=== PATIENT | female | born 1965 | race Caucasian/White ===

== ENCOUNTER → 2016-05-24 | Outpatient (CLI) | payer OTHER ==
[~2016-05-24] MED LIST: ALPR1TAB3 PO; AMIT25TA9 PO; AMIT50 PO; AMLO5TAB2 PO; ASCO500W; B-COCAP9 PO; CHOL1CAP6 PO; COEN100T PO; FLAX10006; IBUP200T2 PO; IBUP800T23 PO; LOVA20TA PO; LOVA40TA PO; MELAPOW2; OMEG12003; OXYC1TAB36 PO; PERC10TA27 PO; PRED2.5T PO; PRED5SOL PO; RANI150T PO; SUPECAP2 PO; SUPETAB25; TIZA4 PO; TIZA4TAB PO; VITA-83 PO; VITA1CAP20; VITA500T PO; [UNRECOGNIZED DRUG - OTHER]
[2016-05-24 09:41] LABS: AUTOMATED NEUTROPHIL # 3.2 TH/MM3 (1.8-7.7); BASOPHIL % 0.9 % (0.0-2.0); EOSINOPHIL # 0.1 TH/MM3 (0-0.4); EOSINOPHIL % 1.9 % (0.0-4.0); HEMATOCRIT 41.2 % (35.0-46.0); HEMO FLAGS DIFF FINAL; LYMPH % 26.9 % (9.0-44.0); LYMPHOCYTE # 1.5 TH/MM3 (1.0-4.8); MEAN CELL VOLUME 98.2 FL (80.0-100.0); MEAN CORPUSCULAR HEMOGLOBIN 33.5 PG (27.0-34.0); MEAN CORPUSCULAR HGB CONC 34.2 % (32.0-36.0); MONO % 11.4 % (0.0-8.0); NEUT % 58.9 % (16.0-70.0); PLATELET COUNT 385 TH/MM3 (150-450); RED CELL DISTRIBUTION WIDTH 12.9 % (11.6-17.2); WHITE BLOOD COUNT 5.4 TH/MM3 (4.0-11.0)
[2016-05-24 10:13] LABS: ALKALINE PHOSPHATASE 144 U/L (45-117); ALT (GPT) 30 U/L (10-53); ANION GAP 9 MEQ/L (5-15); AST (GOT) 31 U/L (15-37); BLOOD UREA NITROGEN 12 MG/DL (7-18); CHLORIDE 102 MEQ/L (98-107); GLOMERULAR FILTRATION RATE 72 ML/MIN (>89); GLUCOSE,FASTING 105 MG/DL (74-99); HDL CHOLESTEROL 125.7 MG/DL (40.0-60.0); LDL CHOLESTEROL 192 MG/DL (0-99); POTASSIUM 4.2 MEQ/L (3.5-5.1); SODIUM (NA) 141 MEQ/L (136-145); TOTAL BILIRUBIN ADULT 0.8 MG/DL (0.2-1.0)
== END ==
LOC: CLAB 08:54
PROVIDERS: ATTEND Family Medicine
DX: F41.9 Anxiety disorder, unspecified (principal); M54.9 Dorsalgia, unspecified; M32.9 Systemic lupus erythematosus, unspecified; E78.5 Hyperlipidemia, unspecified; Z72.0 Tobacco use
CPT/HCPCS: 36415; 80053; 80061; 84443; 85025

== ENCOUNTER 2016-07-03 20:46 | Emergency (ER) | payer OTHER ==
[~2016-07-03] VITALS: Ht 167.6 cm; Wt 72.0 kg
[~2016-07-03 20:46] MED LIST changes: -AMIT50 PO; -ASCO500W; -B-COCAP9 PO; -CHOL1CAP6 PO; -COEN100T PO; -FLAX10006; -IBUP800T23 PO; -LOVA40TA PO; -MELAPOW2; -OMEG12003; -PERC10TA27 PO; -PRED5SOL PO; -TIZA4 PO; -VITA-83 PO; -VITA1CAP20
[2016-07-03 20:49] VITALS: BP 176/92; PULSE 97; RESP 20; TEMP 97.8; O2SAT 96
[2016-08-21] MEDS ORDERED: AMLO5TAB2 PO (13:52)
[2016-09-01] MEDS ORDERED: PRED2.5T PO ×2 (07:46→13:42)
[2016-10-03] MEDS ORDERED: ASCO500W (10:50)
[2016-10-03] MEDS ORDERED: MELAPOW2 (10:50)
[2016-10-03] MEDS ORDERED: VITA1CAP20 (10:50)
== END 2016-07-03 23:27 | disposition left against medical advice (07) ==
LOC: NED 20:46
DX: R68.89 Other general symptoms and signs (principal)
CPT/HCPCS: 99281

== ENCOUNTER → 2016-09-28 | Outpatient (CLI) | payer OTHER ==
[~2016-09-28] MED LIST changes: +ASCO500W; +MELAPOW2; +VITA1CAP20
[2016-09-28 10:57] LABS: ALKALINE PHOSPHATASE 121 U/L (45-117); ALT (GPT) 26 U/L (10-53); ANION GAP 4 MEQ/L (5-15); AST (GOT) 25 U/L (15-37); BICARBONATE 33.2 MEQ/L (21.0-32.0); BLOOD UREA NITROGEN 17 MG/DL (7-18); CHLORIDE 105 MEQ/L (98-107); GLOMERULAR FILTRATION RATE 105 ML/MIN (>89); GLUCOSE,FASTING 76 MG/DL (74-99); HDL CHOLESTEROL 100.2 MG/DL (40.0-60.0); LDL CHOLESTEROL 128 MG/DL (0-99); SODIUM (NA) 142 MEQ/L (136-145); TOTAL BILIRUBIN ADULT 0.2 MG/DL (0.2-1.0)
== END ==
LOC: CLAB 09:59
PROVIDERS: ATTEND Family Medicine
DX: E78.5 Hyperlipidemia, unspecified (principal)
CPT/HCPCS: 36415; 80053; 80061

== ENCOUNTER 2017-09-23 15:03 | Emergency (ER) | payer SELFPAY ==
[~2017-09-23] VITALS: Ht 172.7 cm; Wt 75.0 kg
[~2017-09-23 15:03] MED LIST changes: -IBUP200T2 PO; +IBUP200T47 PO; -SUPECAP2 PO; -SUPETAB25; -VITA500T PO
[2017-09-23 15:17] VITALS: BP 134/58; PULSE 99; RESP 16; TEMP 98.3; O2SAT 100
[2017-09-23 15:33] VITALS: BP 109/63; PULSE 103; RESP 18; O2SAT 100
[2017-09-23] MEDS ORDERED: CLINDAMYCIN 600 MG/NS PREMIX 50 ML IV ONE (16:00)
[2017-09-23] MEDS ORDERED: SODIUM CHLOR 0.9% 1000 ML INJ 1,000 ML IV ONE (16:00)
[2017-09-23 16:18] LABS: AUTOMATED NEUTROPHIL # 3.6 TH/MM3 (1.8-7.7); BASOPHIL % 0.4 % (0.0-2.0); EOSINOPHIL # 0.2 TH/MM3 (0-0.4); EOSINOPHIL % 2.8 % (0.0-4.0); HEMOGLOBIN 9.8 GM/DL (11.6-15.3); LYMPH % 28.3 % (9.0-44.0); LYMPHOCYTE # 1.7 TH/MM3 (1.0-4.8); MEAN CELL VOLUME 97.2 FL (80.0-100.0); MEAN CORPUSCULAR HEMOGLOBIN 35.4 PG (27.0-34.0); MEAN PLATELET VOLUME 6.8 FL (7.0-11.0); MONO % 8.1 % (0.0-8.0); MONOCYTE # 0.5 TH/MM3 (0-0.9); NEUT % 60.4 % (16.0-70.0); PLATELET COUNT 407 TH/MM3 (150-450); RED BLOOD COUNT 2.77 MIL/MM3 (4.00-5.30); RED CELL DISTRIBUTION WIDTH 11.8 % (11.6-17.2)
--- NOTE | 2017-09-23 16:18 | PD ---
HPI Chief Complaint: Skin Problem Time Seen by Provider: 15:23 Travel History International Travel<30 days: No Contact w/Intl Traveler<30days: No Traveled to known affect area: No History of Present Illness HPI The patient is a 52-year-old female who presents to the emergency department for chronic leg wound in the left lower extremity. The patient states she has a history of an ulceration of the lateral left mid tibia/fibula for the last several months, since December 2016. The patient states she occasionally has some surrounding erythema will be placed on Bactrim, the erythema will improve. However, the patient was recently placed on Bactrim and her symptoms did not improve. She does note the ulceration is circular without any significant drainage. The patient states she was advised to follow-up with a food specialist, however, is currently undergoing a legal fight for disability and has been unable to see a food specialist. She also states her primary physician diagnosed her with lupus after she was tested positive with an TY. However, she has not followed up with a farm machinery erector. She is not currently on any immunosuppressive drugs. She also notes a remote history of a positive screening test for possible blood in her stool was advised to follow-up with a wall man. The patient has not followed up with a wall man. Her main concern is the left leg wound, she denies any spreading of the erythema proximally and denies any associated fever, chills, or sweats. PFSH Past Medical History Autoimmune Disease: Yes (LUPUS) Anxiety: Yes Depression: Yes Cardiovascular Problems: Yes (HTN) Diminished Hearing: No Past Surgical History Genitourinary Surgery: Yes (LEEP) Social History Alcohol Use: Yes (A FEW BEERS A WEEK) Tobacco Use: Yes (e-cigs) Substance Use: Yes Allergies-Medications (Allergen,Severity, Reaction): Coded Allergies: Sulfa (Sulfonamide Antibiotics) (Unverified Allergy, Mild, very sick, 11/28) aspirin (Unverified Adverse Reaction, Mild, 11/28/16) upset stomache. codeine (Unverified Adverse Reaction, Mild, 11/28/16) upset stomache Reported Meds & Prescriptions Reported Meds & Active Scripts Active Amlodipine (Amlodipine Besylate) 5 Mg Tab 5 Mg PO DAILY Lovastatin 20 Mg Tab 20 Mg PO BID Prednisone 2.5 Mg Tab 2.5 Mg PO DAILY Reported Vitamin C 500 mg Wafer (Ascorbic Acid/Ascorbate Sodium) 500 Mg Wafer Melatonin (Melatonin (Bulk)) 1 Pow Pow Super B-50 Complex (Vitamin B Complex) 1 Each Capsule Amitriptyline (Amitriptyline HCl) 25 Mg Tab 25 Mg PO TID Oxycodone-Acetaminophen 10-325 mg Tab 1 Tab PO Q6HR Alprazolam 1 Mg Tab 1 Mg PO Q6H PRN Ranitidine (Ranitidine HCl) 150 Mg Tab 150 Mg PO BID Ibuprofen 200 Mg Tab 200 Mg PO Q4H PRN Tizanidine (Tizanidine HCl) 4 Mg Tab 4 Mg PO TID [energy drink mix] Review of Systems Except as stated in HPI: all other systems reviewed are Neg General / Constitutional: No: Fever, Chills Cardiovascular: No: Chest Pain or Discomfort Respiratory: No: Shortness of Breath Gastrointestinal: No: Nausea, Vomiting, Abdominal Pain Musculoskeletal: Positive: Pain Skin: Positive Other (As noted in the history of present illness) Physical Exam Narrative GENERAL: Awake, alert, nontoxic-appearing 52-year-old female who appears her stated age and is in no acute respiratory distress. SKIN: Focused skin assessment warm/dry. HEAD: Atraumatic. Normocephalic. EYES: Pupils equal and round. No scleral icterus. No injection or drainage. ENT: No nasal bleeding or discharge. Mucous membranes pink and moist. NECK: Trachea midline. No JVD. CARDIOVASCULAR: Regular rate and rhythm. No murmur appreciated. RESPIRATORY: No accessory muscle use. Clear to auscultation. Breath sounds equal bilaterally. GASTROINTESTINAL: Abdomen soft, non-tender, nondistended. Hepatic and splenic margins not palpable. MUSCULOSKELETAL: The left lower extremity does have an ulceration on the lateral mid left fibula area that is approximately 3 cm in diameter. There is no active bleeding. There is some surrounding erythema. Positive dorsalis and posterior tibialis pulse Via Doppler. Chronic skin changes noted around the wound as well as in the anterior aspect of the right leg. NEUROLOGICAL: Awake and alert. No obvious cranial nerve deficits. Motor grossly within normal limits. Normal speech. PSYCHIATRIC: Appropriate mood and affect; insight and judgment normal. Data Data Last Documented VS Vital Signs Date Time Temp Pulse Resp B/P (MAP) Pulse Ox O2 Delivery O2 Flow Rate FiO2 09/23/17 15:33 103 18 109/63 (78) 100 Room Air 09/23/17 15:17 98.3 Orders Orders Complete Blood Count With Diff (09/23/17 15:48) Comprehensive Metabolic Panel (09/23/17 15:48) Lactic Acid (09/23/17 15:48) Blood Culture (09/23/17 15:48) Wound Culture And Gram Stain (09/23/17 15:48) Clindamycin 600 Mg/Ns Premix (Cleocin 60 (09/23/17 16:00) Sodium Chlor 0.9% 1000 Ml Inj (Ns 1000 M (09/23/17 16:00) Labs Laboratory Tests Test 09/23/17 15:50 White Blood Count 6.0 TH/MM3 Red Blood Count 2.77 MIL/MM3 Hemoglobin 9.8 GM/DL Hematocrit 27.0 % Mean Corpuscular Volume 97.2 FL Mean Corpuscular Hemoglobin 35.4 PG Mean Corpuscular Hemoglobin Concent 36.4 % Red Cell Distribution Width 11.8 % Platelet Count 407 TH/MM3 Mean Platelet Volume 6.8 FL Neutrophils (%) (Auto) 60.4 % Lymphocytes (%) (Auto) 28.3 % Monocytes (%) (Auto) 8.1 % Eosinophils (%) (Auto) 2.8 % Basophils (%) (Auto) 0.4 % Neutrophils # (Auto) 3.6 TH/MM3 Lymphocytes # (Auto) 1.7 TH/MM3 Monocytes # (Auto) 0.5 TH/MM3 Eosinophils # (Auto) 0.2 TH/MM3 Basophils # (Auto) 0.0 TH/MM3 CBC Comment AUTO DIFF Differential Comment AUTO DIFF CONFIRMED Platelet Estimate NORMAL Platelet Morphology Comment NORMAL Blood Urea Nitrogen 16 MG/DL Creatinine 0.71 MG/DL Random Glucose 81 MG/DL Total Protein 8.0 GM/DL Albumin 3.8 GM/DL Calcium Level 8.8 MG/DL Alkaline Phosphatase 110 U/L Aspartate Amino Transf (AST/SGOT) 23 U/L Alanine Aminotransferase (ALT/SGPT) 21 U/L Total Bilirubin 0.2 MG/DL Sodium Level 137 MEQ/L Potassium Level 4.6 MEQ/L Chloride Level 100 MEQ/L Carbon Dioxide Level 28.4 MEQ/L Anion Gap 9 MEQ/L Estimat Glomerular Filtration Rate 86 ML/MIN Lactic Acid Level 1.0 mmol/L [facility] Medical Decision Making Medical Screen Exam Complete: Yes Emergency Medical Condition: Yes Medical Record Reviewed: Yes Interpretation(s) Laboratory Tests Test 09/23/17 15:50 White Blood Count 6.0 TH/MM3 Red Blood Count 2.77 MIL/MM3 Hemoglobin 9.8 GM/DL Hematocrit 27.0 % Mean Corpuscular Volume 97.2 FL Mean Corpuscular Hemoglobin 35.4 PG Mean Corpuscular Hemoglobin Concent 36.4 % Red Cell Distribution Width 11.8 % Platelet Count 407 TH/MM3 Mean Platelet Volume 6.8 FL Neutrophils (%) (Auto) 60.4 % Lymphocytes (%) (Auto) 28.3 % Monocytes (%) (Auto) 8.1 % Eosinophils (%) (Auto) 2.8 % Basophils (%) (Auto) 0.4 % Neutrophils # (Auto) 3.6 TH/MM3 Lymphocytes # (Auto) 1.7 TH/MM3 Monocytes # (Auto) 0.5 TH/MM3 Eosinophils # (Auto) 0.2 TH/MM3 Basophils # (Auto) 0.0 TH/MM3 CBC Comment AUTO DIFF Differential Comment AUTO DIFF CONFIRMED Platelet Estimate NORMAL Platelet Morphology Comment NORMAL Blood Urea Nitrogen 16 MG/DL Creatinine 0.71 MG/DL Random Glucose 81 MG/DL Total Protein 8.0 GM/DL Albumin 3.8 GM/DL Calcium Level 8.8 MG/DL Alkaline Phosphatase 110 U/L Aspartate Amino Transf (AST/SGOT) 23 U/L Alanine Aminotransferase (ALT/SGPT) 21 U/L Total Bilirubin 0.2 MG/DL Sodium Level 137 MEQ/L Potassium Level 4.6 MEQ/L Chloride Level 100 MEQ/L Carbon Dioxide Level 28.4 MEQ/L Anion Gap 9 MEQ/L Estimat Glomerular Filtration Rate 86 ML/MIN Lactic Acid Level 1.0 mmol/L Differential Diagnosis Differential diagnosis includes chronic wound, psoriasis, cellulitis, infected wound, abscess, PVD. Narrative Course IV was established, labs are drawn and sent, and the patient was placed on cardiac telemetry monitoring and continuous pulse oximetry monitoring. The patient's wound was marked with a surgical marking pen, the patient had positive dorsalis pedis and posterior tibialis pulse Via Doppler. A culture of the wound was sent to lab. Blood culture and CBC were sent to lab. The patient was administered clindamycin 600 mg intravenously. White count is unremarkable. Lactic acid is normal. Hemoglobin is 9.8. The patient is advised to follow-up with a primary physician for referral to a food specialist. Antibiotics as directed. Return if symptoms worsen or progress. Diagnosis Primary Impression: Chronic wound of extremity Additional Impression: Cellulitis Qualified Codes: L03.116 - Cellulitis of left lower limb Patient Instructions: General Instructions Additional Instructions: Medications as directed. Please provide the patient a copy of her labs at discharge. Follow-up with your primary physician for referral to food specialist. Wet to dry dressings daily. Med/Other Pt SpecificInfo: Prescription(s) given Scripts Clindamycin (Cleocin) 150 Mg Cap 150 MG PO Q6H for Infection for 7 Days, #28 CAP 0 Refills Prov: Desmond Jack MD 09/23/17 Disposition: DISCHARGE HOME Condition: Stable Desmond Jack MD Sep 23, 2017 16:18
[2017-09-23 16:21] LABS: MEAN CORPUSCULAR HGB CONC 36.4 % (32.0-36.0)
[2017-09-23 16:35] LABS: ALBUMIN 3.8 GM/DL (3.4-5.0); ALT (GPT) 21 U/L (10-53); AST (GOT) 23 U/L (15-37); BICARBONATE 28.4 MEQ/L (21.0-32.0); BLOOD UREA NITROGEN 16 MG/DL (7-18); CALCIUM 8.8 MG/DL (8.5-10.1); CHLORIDE 100 MEQ/L (98-107); CREATININE 0.71 MG/DL (0.50-1.00); GLOMERULAR FILTRATION RATE 86 ML/MIN (>89); GLUCOSE,RANDOM 81 MG/DL (74-106); SODIUM (NA) 137 MEQ/L (136-145)
[2017-09-23 16:37] LABS: ALKALINE PHOSPHATASE 110 U/L (45-117); TOTAL BILIRUBIN ADULT 0.2 MG/DL (0.2-1.0)
[2017-09-23] MEDS ORDERED: CLIN150 PO (17:13)
== END 2017-09-23 17:31 | disposition home or self-care (01) ==
LOC: NEPC 15:03
DX: L03.116 Cellulitis of left lower limb (principal); B96.5 Pseudomonas (aeruginosa) (mallei) (pseudomallei) as the cause of diseases classified elsewhere; I10 Essential (primary) hypertension; M32.9 Systemic lupus erythematosus, unspecified; F32.9 Major depressive disorder, single episode, unspecified; F17.290 Nicotine dependence, other tobacco product, uncomplicated; Z88.2 Allergy status to sulfonamides; Z88.5 Allergy status to narcotic agent; Z79.899 Other long term (current) drug therapy
CPT/HCPCS: 80053; 83605; 85025; 86403; 87040; 87070; 87077; 87186; 96374; 99284; J7030; 87205